=== PATIENT | female | born 1965 | race Hispanic/Latino ===

== ENCOUNTER 2017-08-23 09:19 | Emergency (ER) | payer SELFPAY ==
[2017-08-23 10:02] LABS: BASO % 0.4 % (0.0-2.0); HEMATOCRIT 40.5 % (34.0-47.0); LYMPH # 1.3 K/uL (1.0-4.3); LYMPH % 18.1 % (20.0-40.0); MEAN CELL VOLUME 86.3 fl (81.0-99.0); MEAN CORPUSCULAR HGB CONC 33.6 g/dL (33.0-37.0); MEAN PLATELET VOLUME 8.8 fl (7.2-11.7); MONO # 0.6 K/uL (0.0-0.8); MONO % 7.8 % (0.0-10.0); NEUT # 5.4 K/uL (1.8-7.0); NEUT % 73.7 % (50.0-75.0); NRBC % 0.2 % (0.0-0.0); RED CELL DISTRIBUTION WIDTH 14.3 % (11.5-14.5); WHITE BLOOD COUNT 7.4 K/uL (4.8-10.8)
--- NOTE | 2017-08-23 10:51 | ED PDOC ---
HPI: Psych/Substance Abuse Time Seen by Provider: 08/23/17 09:31 Chief Complaint (Nursing): Psychiatric Evaluation Chief Complaint (Provider): paranoid, crisis eval ED Caveat: Psychotic History Per: EMS, Family (sister) Onset/Duration Of Symptoms: Unknown Current Symptoms Are (Timing): Still Present Modifying Factor(s): None Severity: Severe Associated Symptoms: Agitation, Paranoia Involuntary Hold By: Emergency Physician Additional Complaint(s): 52yo female [place] with police found [place] restricted area of bus station taking pictures, told police shes part of witness protection program, became paranoid, agitated with pressured nonsensical speech. Arrived ED agitated requiring restraints. Past Medical History Reviewed: Historical Data, Nursing Documentation, Vital Signs, Unable To Obtain (uncooperative) Vital Signs: Last Vital Signs Temp 97.8 F 08/23/17 09:46 Pulse 78 08/23/17 09:46 Resp 20 08/23/17 09:46 BP 111/62 08/23/17 09:46 Pulse Ox 98 08/23/17 09:46 - Medical History Other PMH: per sister ?mental illness - Surgical History Other surgeries: unknown - Family History Family History: States: Unknown Family Hx - Living Arrangements Living Arrangements: Other (mostly homeless per sister) - Allergies Allergies/Adverse Reactions: Allergies Allergy/AdvReac Type Severity Reaction Status Date / Time No Known Allergies Allergy Verified 08/23/17 09:31 Review of Systems Review Of Systems: ROS cannot be obtained secondary to pt's inabilty to answer questions. Physical Exam - Reviewed Nursing Documentation Reviewed: Yes Vital Signs Reviewed: Yes - Physical Exam Appears: Positive for: Non-toxic (agitated, nonsensical, paranoid, pressured speech) Head Exam: Positive for: ATRAUMATIC, NORMAL INSPECTION, NORMOCEPHALIC Skin: Positive for: Normal Color, Warm, DRY Eye Exam: Positive for: EOMI, Normal appearance, PERRL ENT: Positive for: Normal ENT Inspection Cardiovascular/Chest: Positive for: Regular Rate, Rhythm Respiratory: Positive for: Normal Breath Sounds. Negative for: Respiratory Distress Gastrointestinal/Abdominal: Positive for: Bowel Sounds, Soft. Negative for: Tenderness Back: Positive for: Normal Inspection Extremity: Positive for: Normal ROM Neurologic/Psych: Positive for: Alert, Mood/Affect (poor insight agitated delusions). Negative for: Motor/Sensory Deficits - Laboratory Results Result Diagrams: 08/23/17 09:15 08/23/17 16:43 - ECG O2 Sat by Pulse Oximetry: 98 Medical Decision Making Medical Decision Making: required haldol for improvement of psychosis and agitation required restraints given agressive behavior and attempt to strike police captain psychiatric workup initiated labs reviewed crisis eval attempted but patient uncooperative will require [facility] screen endorse Dr Mathews 4pm Disposition - Clinical Impression Clinical Impression: Psychosis - Patient ED Disposition Is Patient to be Admitted: Transfer of Care - Disposition Referrals: Provider TBD, [Primary Care Provider] - Disposition: Transfer of Care Disposition Time: 16:09 Condition: SERIOUS Forms: [employer] (Sol[place] Islander) Patient Signed Over To: Savita Anderson Handoff Comments: pending remaining blood work and med clr and crisis outcome
[2017-08-23 16:52] LABS: ALCOHOL SERUM < 10 mg/dl (0-10); ALKALINE PHOSPHATASE 71 U/L (38-126); ALT/SGPT 28 U/L (9-52); AST/SGOT 32 U/L (14-36); BILIRUBIN,TOTAL 3.3 mg/dl (0.2-1.3); BLOOD UREA NITROGEN 15 mg/dl (7-17); CALCIUM 9.8 mg/dL (8.4-10.2); CARBON DIOXIDE 18 mmol/L (22-30); CHLORIDE 104 mmol/L (98-107); GFR AFRICAN-AMERICAN > 60; GLUCOSE,RANDOM 109 mg/dL (65-105); POTASSIUM 3.6 MMOL/L (3.6-5.0); SODIUM 139 mmol/l (132-148); TOTAL PROTEIN 8.9 G/DL (6.3-8.2)
[2017-08-23 16:55] LABS: ALB/GLOB RATIO 1.1 (1.0-2.1)
[2017-08-23 18:37] LABS: RBC URINE 10 /hpf (0-3); URINE BACTERIA MANY (<OCC); URINE BILIRUBIN NEGATIVE (NEGATIVE); URINE BLOOD SMALL (NEGATIVE); URINE COLOR AMBER (YELLOW); URINE GLUCOSE (UA) NEG (Normal); URINE KETONE 80 mg/dL (NEGATIVE); URINE LEUKOCYTE ESTERASE LARGE Leu/uL (Negative); URINE PROTEIN 100 mg/dL (NEGATIVE); URINE UROBILINOGEN 0.2-1.0 mg/dL (0.2-1.0); WBC CLUMPS FEW /hpf; WBC URINE 65 /hpf (0-5)
--- NOTE | 2017-08-23 19:41 | ED PDOC ---
- Laboratory Results Result Diagrams: 08/23/17 09:15 08/23/17 16:43 - ECG O2 Sat by Pulse Oximetry: 98 Medical Decision Making Medical Decision Making: Time: [address] [place]jia [place] [facility] [place] Stable 2100 Stable 0000 Accepted and [place] [facility] [place]. Scribe Attestation: Documented by Yandel Stanford acting as a scribe for Savita Anderson MD. Scribe Attestation: All medical record entries made by the Scribe were at my direction and personally dictated by me. I have reviewed the chart and agree that the record accurately reflects my personal performance of the history, physical exam, medical decision making, and the department course for this patient. I have also personally directed, reviewed, and agree with the discharge instructions and disposition. Disposition - Clinical Impression Clinical Impression: Psychosis - POA Present On Arrival: None - Disposition Referrals: Provider CINTHYA, [Primary Care Provider] - Disposition: Other Institution Disposition Time: 15:00 Condition: SERIOUS Forms: [employer] (Armenian)
[2017-08-23 23:02] VITALS: BP 114/72; PULSE 92; RESP 18; TEMP 98.3
--- NOTE | 2017-08-24 01:26 | ED PDOC ---
- Laboratory Results Result Diagrams: 08/23/17 09:15 08/23/17 16:43 - ECG O2 Sat by Pulse Oximetry: 94 Pulse Ox Interpretation: Normal Medical Decision Making Medical Decision Making: Time: 00:00 --Patient was endorsed to provider by Dr. Savita Anderson. Bed availability at [facility]. Pending transfer. 1AM Bed available at [facility], patient to be transferred, will transfer. Scribe Attestation: Documented by Marlene Menendez, acting as a scribe for Abelardo Matamoros MD. Provider Scribe Attestation: All medical record entries made by the Scribe were at my direction and personally dictated by me. I have reviewed the chart and agree that the record accurately reflects my personal performance of the history, physical exam, medical decision making, and the department course for this patient. I have also personally directed, reviewed, and agree with the discharge instructions and disposition. Disposition - Clinical Impression Clinical Impression: Psychosis - POA Present On Arrival: None - Disposition Referrals: Provider CINTHYA, [Primary Care Provider] - Disposition: Transfer of Care ([facility]) Disposition Time: 01:00 Condition: SERIOUS Forms: [employer] (Nigerian)
--- NOTE | 2017-08-24 07:34 | RAD ---
HISTORY: clearance COMPARISON: No prior. FINDINGS: LUNGS: No active pulmonary disease. PLEURA: No significant pleural effusion identified, no pneumothorax apparent. CARDIOVASCULAR: Normal. OSSEOUS STRUCTURES: No significant abnormalities. VISUALIZED UPPER ABDOMEN: Normal. OTHER FINDINGS: None. IMPRESSION: No acute cardiopulmonary disease appreciated.
--- NOTE | 2017-08-24 15:58 | CARD ---
APPROVED REPORT EKG Measurement Heart [id number] <Conclusion> Sinus rhythm with short NJ Nonspecific T wave abnormality Abnormal ECG
[2017-08-24 16:17] VITALS: O2SAT 98
== END 2017-08-24 01:30 | disposition short-term general hospital (02) ==
LOC: H.ER 09:19 → SUPCPDRO 09:19 → H.ER 08-24 01:30
DX: F29 Unspecified psychosis not due to a substance or known physiological condition (principal)
CPT/HCPCS: 71010; 80053; 81003; 84484; 84703; 85025; 93005; 96372; 99283; G0480; J1630; J2060